=== PATIENT | female | born 1975 | race Caucasian/White ===

== ENCOUNTER 2017-06-11 08:13 | Day surgery (SDC) | payer BC ==
[~2017-06-11] VITALS: Ht 163.8 cm; Wt 65.8 kg
[~2017-06-11 08:13] MED LIST: DESLORATADINE5 MG PO; EXCEDRIN MIGRA1 EAC3 PO; FLONASE ALLERG9.9 ML BOTH NARES; PROAIR RESPICL90 MCG IH; TYLENOL EXTRA500 MG PO
[2017-06-11 08:45] VITALS: BP 128/76
[2017-06-11 15:04] VITALS: BP 132/73
[2017-06-11 17:59] LABS: HEMATOCRIT 36.9 % (36.0-46.0); HEMOGLOBIN 12.6 G/DL (11.9-15.5); MCH 31.8 PG (29.0-34.0); MCHC 34.1 G/DL (30.0-36.0); MCV 93.2 FL (83-99); PLATELET COUNT 276 K/uL (156-360); RBC DIS.WIDTH-CV 12.1 % (11.8-14.6); RBC DIS.WIDTH-SD 41.8 % (39-53); RED BLOOD COUNT 3.96 M/uL (3.80-5.20); WHITE BLOOD COUNT 13.6 K/uL (4.1-10.2)
[2017-06-11 18:23] LABS: CHLORIDE 100 MEQ/L (99-109); CREATININE 0.9 MG/DL (0.6-1.3); GFR ESTIMATE (CALCULATED) > 59 mL/min/; GLUCOSE 190 mg/dL (70-99); POTASSIUM 3.8 MEQ/L (3.7-5.4); SODIUM 133 MEQ/L (136-147); UREA NITROGEN (BUN) 9 mg/dL (9-23)
[2017-06-11 19:20] VITALS: BP 120/58
[2017-06-11 23:40] VITALS: BP 102/55; BP 113/57
[2017-06-12 03:28] VITALS: BP 110/55
[2017-06-12 06:12] LABS: HEMATOCRIT 36.4 % (36.0-46.0); HEMOGLOBIN 12.4 G/DL (11.9-15.5); MCH 31.9 PG (29.0-34.0); MCHC 34.1 G/DL (30.0-36.0); MCV 93.6 FL (83-99); PLATELET COUNT 277 K/uL (156-360); RBC DIS.WIDTH-SD 41.1 % (39-53); RED BLOOD COUNT 3.89 M/uL (3.80-5.20); WHITE BLOOD COUNT 16.7 K/uL (4.1-10.2)
[2017-06-12 06:25] LABS: CHLORIDE 103 MEQ/L (99-109); CREATININE 0.9 MG/DL (0.6-1.3); GFR ESTIMATE (CALCULATED) > 59 mL/min/; POTASSIUM 3.7 MEQ/L (3.7-5.4); SODIUM 136 MEQ/L (136-147); UREA NITROGEN (BUN) 7 mg/dL (9-23)
[2017-06-12 06:30] LABS: GLUCOSE 93 mg/dL (70-99)
[2017-06-12 07:23] VITALS: BP 120/74
[2017-06-12 09:03] VITALS: BP 120/74
[2017-06-12] MEDS ORDERED: TRAMADOL HCL50 MG PO (09:22)
== END 2017-06-12 13:26 | disposition home or self-care (01) ==
LOC: SDC 08:13 → 2SOUTH 11:30 → ENRESERV 11:56 → 2EAST 14:50 → SDC 15:03 → 2EAST 06-12 13:26
PROVIDERS: Obstetrics & Gynecology Gynecologic Oncology
DX: N93.8 Other specified abnormal uterine and vaginal bleeding (principal); D25.1 Intramural leiomyoma of uterus; N72 Inflammatory disease of cervix uteri; N80.0 Endometriosis of uterus; J45.20 Mild intermittent asthma, uncomplicated; G43.909 Migraine, unspecified, not intractable, without status migrainosus; Z82.49 Family history of ischemic heart disease and other diseases of the circulatory system; Z83.49 Family history of other endocrine, nutritional and metabolic diseases; Z81.8 Family history of other mental and behavioral disorders
CPT/HCPCS: 80048; 85027; 88307; G0378; J0171; J0330; J0690; J1100; J1170; J1650; J1885; J1940; J2250; J2405; J2710; J2765; J3010; J7120; J7643